=== PATIENT | female | born 1960 | race Caucasian/White ===

== ENCOUNTER 2022-03-29 01:42 | Day surgery (SDC) | payer BC, SELFPAY ==
[2022-03-16 09:55] VITALS: BMI 50.4
[2022-03-29 07:27] VITALS: BP 151/94; PULSE 71; RESP 20; TEMP 36.5; O2SAT 100; BMI 50.4
[2022-03-29] MEDS: LACTATED RINGERS 1,000 ML 150 ML IV CONT (07:33)
--- NOTE | 2022-03-29 07:35 | WPDANESEPPF ---
Anes - Initial Pre Proc Eval Procedure: Operation Date: 03/29/22 08:30 Proposed Procedures p Esophagogastroduodenoscopy & Colonoscopy - Gerald Bennett MD Date/Time: 03/29/22 07:35 Surgeon: Gerald Bennett MD Pre Op Diagnosis: dysphagia, diarrhea Patient Data Age: 61 Gender: F Height: 1.68 m Weight: 141.8 kg Last Vital Signs Temp 36.5 C 03/29/22 07:27 Pulse 71 03/29/22 07:27 Resp 20 03/29/22 07:27 BP 151/94 H 03/29/22 07:27 Pulse Ox 100 03/29/22 07:27 O2 Del Method Room Air 03/29/22 07:27 Allergies Allergy/AdvReac Type Severity Reaction Status Date / Time Penicillins Allergy Mild rash Verified 03/29/22 07:10 tetracycline Allergy Unknown rash Verified 03/29/22 07:10 Tetracyclines Allergy Unknown RASH Verified 03/29/22 07:10 Home Medications Medication Instructions Recorded Confirmed Type lisinopril 20 mg tablet 20 mg PO DAILY 02/07/22 03/16/22 History sodium,potassium,mag sulfates 17.5 See Rx Instructions PO .COMPLEX 02/11/22 03/16/22 Rx gram-3.13 gram-1.6 gram oral soln #354 mL (Suprep Bowel Prep Kit) omeprazole 20 mg capsule,delayed 20 mg PO DAILY #30 caps 03/29/22 Rx release Patient hx anesthesia problems: none Family hx anesthesia problems: none Results Review: All pre-operative results and documents have been reviewed as part of the pre-operative evaluation. [facility] Past Medical History Medical History (Updated 03/29/22 @ 08:49 by Gerald Bennett MD) Cataract Colon cancer screening Dysphagia Family history of esophageal cancer Fecal urgency Hypertension Obesities, morbid Surgical History Surgical History (Updated 02/07/22 @ 15:38 by Whitney Barrientos APRN) History of appendectomy Hx of cholecystectomy Family History Family History Father Family history of obesity Asthma Family history of allergic disorder Family history of malignant neoplasm of esophagus, Onset Age: 68 Patient's father is Sibling Family history of obesity Family history of blood dyscrasia Asthma Family history of allergic disorder Mother Family history of glaucoma Hypertension Patient's mother is in good health Social History Social History Smoking status: Never smoker Alcohol intake: current Drinks per week: 2 Substance use: never Substance use type: does not use Living arrangements: alone Spiritual care concerns: No Anes - Eval Final PreProcedure Day of Procedure 03/29/22 07:35 Patient weight: morbidly obese Heart: regular rate and rhythm Lungs: clear to auscultation Airway: Mallampati scale class II Neurological: alert and oriented Last oral intake: >/= 8 hours ASA classification: III Emergent: no Anesthetic plan: proceed Anesthesia type and monitoring: general GIVS and standard monitoring Results Review: All pre-operative results and documents have been reviewed as part of the pre-operative evaluation. Informed Consent: The patient's anesthetic plan and its attendant risks and benefits were discussed with the patient/family/POA. Questions were solicited and answers provided to the satisfaction of the patient/family/POA.
--- NOTE | 2022-03-29 08:02 | PM.HPGS ---
History of Present Illness History of Present Illness Consent: Risks, benefits, and alternatives have been discussed and questions answered. Patient agrees to proceed with procedure. Chief complaint: dysphagia, diarrhea Narrative: Tracey Guevara is a 61 year old female Presents for colonoscopy and EGD. Patient reports that occasionally food will catch in the low mid sternal portion of the chest. This occurs infrequently. She has a very distant history of dilatation of the esophagus. These records are not available for review. Family history is significant her father had esophageal carcinoma for these reasons patient presents today for EGD. Additionally patient complains of episodic diarrhea. She has diarrhea perhaps 2-3 days a month. The remainder the month is normal. She attributes this to dietary indiscretion including peanut butter and other dietary ingredients that contribute to her loose stools. Previously tried psyllium type fiber but this made her constipated. There is no family history of colon cancer that we are aware. Review of Systems Review of Systems: Review of systems noncontributory. [facility] Past Medical History Medical History (Updated 02/07/22 @ 15:40 by Whitney Barrientos APRN) Cataract Colon cancer screening Dysphagia Family history of esophageal cancer Fecal urgency Hypertension Obesities, morbid Surgical History Surgical History (Updated 02/07/22 @ 15:38 by Whitney Barrientos APRN) History of appendectomy Hx of cholecystectomy Family History Family History Father Family history of obesity Asthma Family history of allergic disorder Family history of malignant neoplasm of esophagus, Onset Age: 68 Patient's father is Sibling Family history of obesity Family history of blood dyscrasia Asthma Family history of allergic disorder Mother Family history of glaucoma Hypertension Patient's mother is in good health Social History Social History Smoking status: Never smoker Alcohol intake: current Drinks per week: 2 Substance use: never Substance use type: does not use Living arrangements: alone Spiritual care concerns: No Meds Home Medications and Allergies Home Medications Medication Instructions Recorded Confirmed Type lisinopril 20 mg tablet 20 mg PO DAILY 02/07/22 03/16/22 History sodium,potassium,mag sulfates 17.5 See Rx Instructions PO .COMPLEX 02/11/22 03/16/22 Rx gram-3.13 gram-1.6 gram oral soln #354 mL (Suprep Bowel Prep Kit) Allergies Allergy/AdvReac Type Severity Reaction Status Date / Time Penicillins Allergy Mild rash Verified 03/29/22 07:10 tetracycline Allergy Unknown rash Verified 03/29/22 07:10 Tetracyclines Allergy Unknown RASH Verified 03/29/22 07:10 Vital Signs Vital Signs - 24 hr 03/29/22 07:27 Temperature 97.7 F Pulse Rate 71 Respiratory Rate 20 Blood Pressure 151/94 H Pulse Oximetry 100 Oxygen Delivery Room Air Exam Narrative: Physical exam reveals patient to be alert. Vital signs stable. HEENT exam is unremarkable. Patient is anicteric. Lungs are clear to auscultation and percussion. Heart is without murmur or extra sounds. Abdomen is obese. Bowel sounds are present soft nontender with no organomegaly. Digital external rectal exam is normal. Assessment and Plan Assessment and plan (1) Colon cancer screening: Code(s): Z12.11 - Encounter for screening for malignant neoplasm of colon Status: Acute Assessment and Plan: Colonoscopy will be performed because of alteration of bowel habit. Colonoscopy advised at least at 10 year intervals. (2) Fecal urgency: Code(s): R15.2 - Fecal urgency Status: Acute Assessment and Plan: Intermittent loose diarrhea stools most consistent with irritable bowel syndrome. Suggest fiber s
[2022-03-29] MEDS: SIMETHICONE ORAL SUSPENSION 20 MG/0.3 ML 30 ML BOTTLE 0.6 ML IRRIGATION (08:57)
--- NOTE | 2022-03-29 09:07 | SUR.OPER ---
EGD START 840, END 843 COLONOSCOPY START 851, END 904
[2022-03-29 09:10] VITALS: BP 149/90; PULSE 72; RESP 16; TEMP 36.5; O2SAT 100
[2022-03-29 09:20] VITALS: BP 148/90; PULSE 68; RESP 15; O2SAT 100
[2022-03-29 09:30] VITALS: BP 154/94; PULSE 77; RESP 18; O2SAT 100
== END 2022-03-29 09:39 | disposition home or self-care (01) ==
PROVIDERS: PCP Internal Medicine; Visit Provider Internal Medicine Gastroenterology
PROC: 0DJ08ZZ Inspection of Upper Intestinal Tract, Via Natural or Artificial Opening Endoscopic (ICD-10-PCS; CPT 43235; principal; 2022-03-29 08:30)
DX: Z12.11 Encounter for screening for malignant neoplasm of colon (principal); K58.0 Irritable bowel syndrome with diarrhea; D12.3 Benign neoplasm of transverse colon; K64.8 Other hemorrhoids; R15.2 Fecal urgency; K57.30 Diverticulosis of large intestine without perforation or abscess without bleeding; K44.9 Diaphragmatic hernia without obstruction or gangrene; Q39.4 Esophageal web; I10 Essential (primary) hypertension; E66.01 Morbid (severe) obesity due to excess calories; Z68.43 Body mass index [BMI] 50.0-59.9, adult
CPT/HCPCS: 45385; 43450; 43235; 88305; J2704; J7120